=== PATIENT | male | born 1970 | race Caucasian/White ===

== ENCOUNTER 2017-09-21 18:56 | Emergency (ER) | payer MEDICARE, OTHER ==
[~2017-09-21] VITALS: Ht 170.2 cm; Wt 81.6 kg
--- NOTE | 2017-09-21 20:00 | NUR ---
CALLED FOR TRIAGE; NOT IN LOBBY
--- NOTE | 2017-09-21 20:07 | NUR ---
CALLED AGAIN; NO ANSWER. INFORMED "PT LEFT"
--- NOTE | 2017-09-21 20:10 | NUR ---
PT BIBRA TO ER BED 08. PER REPORT, PT WAS SEEN AT [place] FOR UTI AND WAS DISCHARGE YESTERDAY. PT STILL C/O DYSURIA AND STATES WAS NOT PRESCRIBED W/ ANTIBIOTICS WHEN HE WAS D/C'D YESTERDAY. GOWNED AND PLACED ON MONITOR. STABLE VITALS. AWAITING MD SORTO.
--- NOTE | 2017-09-21 20:48 | NUR ---
DR LANDRY AT BEDSIDE FOR EVAL.
[2017-09-21] MEDS ORDERED: OLANZAPINE 10 MG VIAL IM ONE ×2 (20:53→21:00)
[2017-09-21] MEDS ORDERED: LORAZEPAM INJ 2 MG/ML VIAL ONE (20:53)
[2017-09-21] MEDS ORDERED: LORAZEPAM INJ 2 MG/ML VIAL IM ONE (21:00)
[2017-09-21 21:56] LABS: APPEARANCE,URINE CLEAR (CLEAR); BILIRUBIN,URINE NEGATIVE (NEGATIVE); BLOOD, URINE 1+ Ery/uL (NEGATIVE); COLOR,URINE YELLOW (YELLOW); KETONES,URINE NEGATIVE (NEGATIVE); LEUKOCYTE ESTERASE ,URINE NEGATIVE (NEGATIVE); NITRITE, URINE NEGATIVE (NEGATIVE); PROTEIN,URINE TRACE mg/dl (NEGATIVE); UGLUCOSE NEGATIVE (NEGATIVE); UROBILINOGEN,URINE 0.2 EU/dL (0.2)
[2017-09-21 22:23] LABS: BACTERIA,URINE None seen /HPF (None Seen); SQUAMOUS EPITHELIAL CELL,UR Moderate /HPF (None Seen); WBC,URINE 0-2 /HPF (0-3)
--- NOTE | 2017-09-21 22:42 | NUR ---
CALLED [facility] FOR TRANSPORT BACK TO [facility], ETA 30 MIN
--- NOTE | 2017-09-21 23:38 | NUR ---
TRANSPORTED BACK TO SNF IN STABLE CONDITION.
[2017-09-21 23:39] VITALS: BP 119/74
== END 2017-09-21 23:41 | disposition home or self-care (01) ==
LOC: ER 18:59
DX: F20.2 Catatonic schizophrenia (principal); N39.0 Urinary tract infection, site not specified
CPT/HCPCS: 81000-TC; A4606; J2060; J3490; Z7610

== ENCOUNTER 2019-08-09 19:15 | Emergency (ER) | payer MEDICARE, OTHER ==
[~2019-08-09] VITALS: Ht 182.9 cm; Wt 81.6 kg
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
[2019-08-09 20:15] LABS: BASOPHILS % (AUTO) 0.7 % (0.0-2.0); EOSINOPHILS % (AUTO) 6.5 % (0.0-6.0); HEMATOCRIT 39 % (39-51); HEMOGLOBIN 13.5 g/dL (13.5-17.5); LYMPHOCYTES # (AUTO) 2.2 /CMM (0.8-4.8); LYMPHOCYTES % (AUTO) 32.1 % (20.0-44.0); MEAN CORPUSCULAR HGB CONC 35 g/dl (31.0-36.0); MEAN CORPUSCULAR VOLUME 86 fL (80-96); MONOCYTES # (AUTO) 0.6 /CMM (0.1-1.30); MONOCYTES % (AUTO) 8.7 % (2.0-12.0); NEUTROPHILS # (AUTO) 3.6 /CMM (1.8-8.9); PLATELET COUNT (AUTO) 185 /CMM (150-450); RED BLOOD CELL COUNT(AUTO) 4.54 MIL/uL (4.5-6.0); WHITE BLOOD COUNT (AUTO) 6.9 K/uL (4.3-11.0)
--- NOTE | 2019-08-09 20:15 | NUR ---
pa in to see the patient.
[2019-08-09 20:24] LABS: CALCIUM, SERUM 8.7 mg/dL (8.5-10.1); CARBON DIOXIDE 26 mmol/L (21-32); CHLORIDE 103 mmol/L (98-107); GLUCOSE 111 mg/dL (74-106); SODIUM SERUM 139 mmol/L (136-145); UREA NITROGEN, BLOOD 13 mg/dL (7-18)
[2019-08-09 20:29] LABS: ALANINE AMINOTRANSFERASE 14 U/L (12-78); ALBUMIN 3.6 g/dL (3.4-5.0); ALCOHOL, BLOOD < 3 mg/dL (0-0); ALKALINE PHOSPHATASE 65 U/L (46-116); ASPARTATE AMINOTRANSFERASE 16 U/L (15-37); BILIRUBIN,TOTAL 0.2 mg/dL (0.2-1.0); TOTAL PROTEIN, SERUM 7.4 g/dL (6.4-8.2)
[2019-08-09 20:30] LABS: ACETAMINOPHEN < 10 ug/ml (10-30); SALICYLATE 1.4 mg/dL (2.8-20.0)
--- NOTE | 2019-08-09 20:58 | NUR ---
urine collected and sent to lab patient straight cathed to collect urine sample. patient was unable to comply with request to void in sample cup d/t mental ability. alert and oriented x1.
[2019-08-09 21:02] LABS: APPEARANCE,URINE Clear (CLEAR); BILIRUBIN,URINE Negative (NEGATIVE); BLOOD, URINE Negative Ery/uL (NEGATIVE); COLOR,URINE Yellow (YELLOW); KETONES,URINE Negative (NEGATIVE); LEUKOCYTE ESTERASE ,URINE Negative (NEGATIVE); NITRITE, URINE Negative (NEGATIVE); PROTEIN,URINE Negative (NEGATIVE); UGLUCOSE Negative (NEGATIVE); UROBILINOGEN,URINE 0.2 EU/dL (0.2)
--- NOTE | 2019-08-09 21:24 | NUR ---
PAGED TODD FOR PSYCH EVAL
--- NOTE | 2019-08-09 22:39 | NUR ---
PER BONE CHAR OPERATOR TODD, PT DOES NOT MEET CRITERIA FOR PSYCH EVAL, (PT IS NOT SI)
--- NOTE | 2019-08-09 23:24 | NUR ---
PATIENT PULLED OUT IV ACCESS TO LEFT HAND. PATIENT BLEEDING FORM SITE. DRESSING APPLIED SITE CLEANE NO S/S OF COMPLICATIONS. CATHETER OF 20 GAUGE CATHETER INTACT. SITE CLEANED DRESSINC APPLIED CDI.
--- NOTE | 2019-08-10 01:31 | NUR ---
Mal[facility] from [facility] in to see the patient.
--- NOTE | 2019-08-10 02:15 | NUR ---
Per FIELD KILN BURNER pt cannot be evaluated d/t pt not stating suicide ideation or homicidal ideation
--- NOTE | 2019-08-10 02:27 | NUR ---
Called [facility] ,[phone] Patient being discharged back to facility. Spoke with Erin the Cold Mill Inspector at facility and given report. patient has been medically cleared by physician but informed that licensed mortgage loan officer unable to perform psych eval d/t patient not having any si or hi. questions concerns addressed. patient to be arranged for chicken picker back to facility.
--- NOTE | 2019-08-10 02:46 | NUR ---
SPOKE TO ARTEM FROM [facility] ETA BLS TRANSPORT 90 MINS. TRIP [id number]
--- NOTE | 2019-08-10 03:11 | NUR ---
updated [facility] care leader willam with pickle processor time of roughly 4 am.
[2019-08-10 04:55] VITALS: BP 141/99
--- NOTE | 2019-08-10 04:56 | NUR ---
Patient discharged to home in stable condition. patient alert and oriented x2 but frequently forgetful. Written and verbal after care instructions given to patient and [facility] transport. report given earlier to care leader willam at [facility]. Patient verbalizes understanding of instruction to the best of his ability. patient transported off unit via gurney in no apparent distress.
== END 2019-08-10 05:00 | disposition home or self-care (01) ==
LOC: ER 19:17
DX: R30.0 Dysuria (principal); F91.9 Conduct disorder, unspecified; F20.9 Schizophrenia, unspecified
CPT/HCPCS: 36415; 80048; 80076; 80305; 80307; 80329; 81001; 85025; 99283; G0480; 81000-TC; 87086-TC